=== PATIENT | female | born 1955 | race Caucasian/White ===

== ENCOUNTER → 2017-01-31 | Outpatient (CLI) | payer OTHER ==
[~2017-01-31] MED LIST: ALBU0.63 NEB; BUDE10.22 PO; CETI10TA24 PO; DULO60CA7 PO; ESOM20CA PO; IBUP1TAB76 PO; OLME1TAB5 PO; RASUVO INJ; TRAM50TA2 PO
[2017-01-31 12:01] LABS: BLOOD UREA NITROGEN 13 mg/dL (7-18)
[2017-01-31 12:04] LABS: ASPARTATE AMINO TRANSFERASE 15 U/L (15-37); HEMOGLOBIN 14.2 g/dL (11.7-16.4)
[2017-01-31 12:38] LABS: HIV 1&2 ANTIBODY SCREEN Nonreactive (Nonreactive); HIV-1 p24 ANTIGEN Nonreactive (Nonreactive)
== END | disposition home or self-care (01) ==
LOC: STAR 10:33
PROVIDERS: ATTEND Orthopaedic Surgery
DX: Z01.818 Encounter for other preprocedural examination (principal); M17.0 Bilateral primary osteoarthritis of knee; M79.673 Pain in unspecified foot
CPT/HCPCS: 36415; 80053; 81003; 83036; 85025; 85610; 85730; 86703; 87081; 87899; 93005; G0435

== ENCOUNTER 2017-02-07 09:32 | Inpatient (IN) | payer OTHER ==
[~2017-02-07] VITALS: Ht 165.1 cm; Wt 80.0 kg
[~2017-02-07 09:32] MED LIST changes: +EPINEPHRINE 1 MG/ML, 1ML ONE; +KETOROLAC 60 MG/2 ML ONE; +ROPIvacaine/PF 0.2%, 20 ML ONE; +ROPIvacaine/PF 0.5%, 20 ML ONE; +SODIUM CHLORIDE 0.9% 50 ML ONE; +TRANEXAMIC ACID 100 MG/ML, 10ML ONE
[2017-02-07] MEDS ORDERED: SUCCINYLCHOLINE 20 MG/ML, 10ML ONE (10:48)
[2017-02-07] MEDS ORDERED: DIPHENHYDRAMINE 50 MG/ML, 1ML ONE (10:48)
[2017-02-07] MEDS ORDERED: DEXAMETHASONE 4 MG/ML, 1ML ONE (10:48)
[2017-02-07] MEDS ORDERED: PROPOFOL 10 MG/ML, 20ML ONE (10:48)
[2017-02-07] MEDS ORDERED: ONDANSETRON 2MG/ML, 2ML ONE (10:48)
[2017-02-07] MEDS ORDERED: CEFAZOLIN 1,000 MG ONE (10:48)
[2017-02-07] MEDS ORDERED: ROCURONIUM 10 MG/ML ONE (10:48)
[2017-02-07] MEDS ORDERED: PROPOFOL 10 MG/ML, 50ML ONE (10:48)
[2017-02-07] MEDS ORDERED: LACTATED RINGERS 1,000 ML IV SCH (12:28)
[2017-02-07 12:29] VITALS: BP 148/93
[2017-02-07] MEDS ORDERED: LIDOCAINE 1%, 2ML SQ PRN (12:30)
[2017-02-07] MEDS ORDERED: VANCOMYCIN PER PHARMACY MC PRN (13:00)
[2017-02-07] MEDS ORDERED: OxyconTIN ER 10 MG TAB.ER PO SCH (13:00)
[2017-02-07] MEDS ORDERED: VANCOMYCIN 1,600 MG in SODIUM CHLORIDE 0.9% 250 ML IV ONE (13:00)
[2017-02-07] MEDS ORDERED: FENTANYL PF 100 MCG/2ML ONE ×2 (13:19→16:49)
[2017-02-07] MEDS ORDERED: MIDAZOLAM 1 MG/ML, 2ML ONE (13:19)
[2017-02-07] MEDS ORDERED: TRANEXAMIC ACID 100 MG/ML, 10ML ONE ×3 (14:27)
[2017-02-07] MEDS ORDERED: DIPHENHYDRAMINE 50 MG CAPSULE PO PRN (14:30)
[2017-02-07] MEDS ORDERED: HYDROcodone/APAP 10/325 MG TABLET PO PRN (14:30)
[2017-02-07] MEDS ORDERED: SENNA/DOCUSATE TABLET PO PRN (14:30)
[2017-02-07] MEDS: OXYcodone IR 5MG TABLET PO SCH ×2 (14:30→21:27)
[2017-02-07] MEDS ORDERED: PROMETHAZINE 12.5 MG SUPP PR PRN (14:30)
[2017-02-07] MEDS ORDERED: DIAZEPAM 5 MG TABLET PO PRN (14:30)
[2017-02-07] MEDS ORDERED: MAGNESIUM HYDROXIDE 8%, 30ML UDC PO PRN (14:30)
[2017-02-07] MEDS ORDERED: ACETAMINOPHEN 650 MG/20.3 ML UDC PO PRN (14:30)
[2017-02-07] MEDS ORDERED: ONDANSETRON 4 MG TABLET PO PRN (14:30)
[2017-02-07] MEDS ORDERED: ZOLPIDEM 5MG TABLET PO PRN (14:30)
[2017-02-07] MEDS ORDERED: SCOPOLAMINE PATCH, 1.5MG PATCH.TD72 TD SCH (14:30)
[2017-02-07] MEDS ORDERED: BISACODYL 10 MG SUPP PR PRN (14:30)
[2017-02-07] MEDS ORDERED: OXYcodone IR 5MG TABLET PO PRN (14:30)
[2017-02-07] MEDS ORDERED: HYDROmorphone 1 MG/ML, 1ML IV PRN ×2 (14:30→16:00)
[2017-02-07] MEDS ORDERED: ONDANSETRON 2MG/ML, 2ML IV PRN (14:30)
[2017-02-07] MEDS ORDERED: PROMETHAZINE 25 MG/ML, 1ML IM PRN (14:30)
[2017-02-07] MEDS ORDERED: ALUMINUM/MAG/SIMETHICONE 30 ML UDC PO PRN (14:30)
[2017-02-07] MEDS ORDERED: KETAMINE 10 MG/ML, 20ML ONE (15:01)
[2017-02-07] MEDS ORDERED: METOCLOPRAMIDE 5 MG/ML, 2ML IV PRN (16:00)
[2017-02-07] MEDS ORDERED: FENTANYL PF 100 MCG/2ML IV PRN (16:00)
[2017-02-07] MEDS ORDERED: OXYcodone 5 MG/5 ML ORAL.SOL UDC PO PRN (16:00)
[2017-02-07] MEDS ORDERED: ACETAMINOPHEN 325 MG TABLET PO PRN (16:00)
[2017-02-07] MEDS ORDERED: HYDROmorphone 1 MG/ML, 1ML ONE (16:01)
[2017-02-07] MEDS ORDERED: OXYcodone 5 MG/5 ML ORAL.SOL UDC ONE (16:50)
[2017-02-07] MEDS ORDERED: DIAZEPAM 5 MG/ML, 2ML ONE (16:54)
[2017-02-07] MEDS ORDERED: RACEPINEPHRINE INH 2.25%, 0.5ML ONE (17:21)
[2017-02-07] MEDS ORDERED: DIAZEPAM 5 MG/ML, 2ML IVPush PRN (17:30)
[2017-02-07] MEDS ORDERED: RACEPINEPHRINE INH 2.25%, 0.5ML NPPB ONE (17:30)
[2017-02-07] MEDS ORDERED: MEPERIDINE/PF 25MG/0.5ML ONE (17:36)
[2017-02-07] MEDS ORDERED: MEPERIDINE/PF 25MG/0.5ML IVPush PRN (18:00)
[2017-02-07] MEDS ORDERED: ALBUTEROL SULFATE 2.5MG/0.5ML NPPB PRN (18:00)
[2017-02-07 18:15] VITALS: BP 119/60
[2017-02-07] MEDS ORDERED: ALBUTEROL SULFATE 2.5 MG/3 ML HHN PRN (19:00)
[2017-02-07] MEDS ORDERED: CETIRIZINE 10 MG TABLET PO PRN (19:00)
[2017-02-07] MEDS: ASPIRIN 325 MG TABLET EC PO SCH (21:26)
[2017-02-07] MEDS: PREGABALIN 75 MG CAPSULE PO SCH (21:26)
[2017-02-07] MEDS: TAMSULOSIN 0.4 MG CAP.ER.24H PO SCH (21:27)
[2017-02-07] MEDS: CEFAZOLIN PMX 2GM/100ML 100 ML IVPB SCH (21:34)
[2017-02-07] MEDS: D5%-0.45% NACL 1,000 ML IV SCH ×2 (21:34→22:07)
[2017-02-07] MEDS: DOCUSATE 100 MG CAPSULE PO SCH (21:34)
[2017-02-08 00:05] VITALS: BP 115/63
[2017-02-08] MEDS: OXYcodone IR 5MG TABLET PO SCH ×4 (01:07→13:21)
[2017-02-08 04:00] VITALS: BP 100/63
[2017-02-08] MEDS: CEFAZOLIN PMX 2GM/100ML 100 ML IVPB SCH (05:11)
[2017-02-08] MEDS: ASPIRIN 325 MG TABLET EC PO SCH (05:51)
[2017-02-08] MEDS ORDERED: DEXAMETHASONE 4 MG/ML, 1ML IVPush SCH (06:00)
[2017-02-08] MEDS ORDERED: DOCU-30 PO ×2 (07:07→11:18)
[2017-02-08] MEDS: D5%-0.45% NACL 1,000 ML IV SCH ×2 (07:15→14:07)
[2017-02-08 07:23] VITALS: BP 108/69
[2017-02-08] MEDS ORDERED: PANTOPRAZOLE 20MG TABLET PO SCH (07:30)
[2017-02-08] MEDS ORDERED: MULTIVITAMINS/MINERALS TABLET PO SCH (09:00)
[2017-02-08] MEDS: PREGABALIN 75 MG CAPSULE PO SCH (09:00)
[2017-02-08] MEDS ORDERED: FLUTICASONE/VILANTEROL 100-25MCG/INH INH SCH (09:00)
[2017-02-08] MEDS ORDERED: LOSARTAN 50MG TABLET PO SCH (09:00)
[2017-02-08] MEDS ORDERED: HYDROCHLOROTHIAZIDE 12.5 MG CAPSULE PO SCH (09:00)
[2017-02-08] MEDS ORDERED: DULOXETINE 30 MG CAPSULE.DR PO SCH (09:00)
[2017-02-08] MEDS: TAMSULOSIN 0.4 MG CAP.ER.24H PO SCH (10:01)
[2017-02-08] MEDS: DOCUSATE 100 MG CAPSULE PO SCH (10:01)
[2017-02-08] MEDS ORDERED: ACET500T76 PO (11:18)
[2017-02-08] MEDS ORDERED: OXYC5CAP4 PO (11:19)
[2017-02-08] MEDS ORDERED: DIAZ5TAB PO (11:21)
[2017-02-08] MEDS ORDERED: ASPI-650 PO (11:21)
[2017-02-08] MEDS ORDERED: ONDA4TAB10 PO (11:22)
[2017-02-08] MEDS ORDERED: VANCOMYCIN PMX 1GM/200ML 200 ML IVPB SCH (13:00)
[2017-02-08] MEDS ORDERED: DIPHENHYDRAMINE 50 MG/ML, 1ML IVPush ONE (13:00)
[2017-02-08 13:19] VITALS: BP 106/66
[2017-02-08 14:26] VITALS: BP 109/54
[2017-02-08] MEDS ORDERED: KETOROLAC 30 MG/1 ML IV SCH (14:30)
== END 2017-02-08 15:31 | disposition home or self-care (01) | DRG 470 ==
LOC: ORIP 12:08 → 4NOR 18:18 → DCLOUNGE 02-08 15:15
PROVIDERS: ADMIT Orthopaedic Surgery; ATTEND Orthopaedic Surgery
PROC: 3E0T3BZ Introduction of Anesthetic Agent into Peripheral Nerves and Plexi, Percutaneous Approach (ICD-10-PCS; 2017-02-07)
PROC: 0SRD0J9 Replacement of Left Knee Joint with Synthetic Substitute, Cemented, Open Approach (ICD-10-PCS; principal; 2017-02-07 14:15)
DX: M17.12 Unilateral primary osteoarthritis, left knee (principal); K21.9 Gastro-esophageal reflux disease without esophagitis; M06.9 Rheumatoid arthritis, unspecified; Z79.899 Other long term (current) drug therapy
CPT/HCPCS: 36415; 85014; 85018; C1713; J0171; J0690; J1100; J1170; J1885; J2175; J2250; J2405; J2704; J2795; J3010; J3360; J3370; J7611; C1776; J0330; J1200; J7050; J7120